=== PATIENT | male | born 1945 | race Caucasian/White ===

== ENCOUNTER 2018-01-14 16:40 | Emergency (ER) | payer OTHER ==
--- NOTE | 2018-01-14 19:09 | ED ---
Fall HPI - General Source: patient, family, RN notes reviewed Mode of arrival: wheelchair Limitations: no limitations <Cornell Burt - Last Filed: 01/14/18 19:50> <Juancarlos Fry - Last Filed: 01/14/18 20:04> - General Chief Complaint: Fall Stated Complaint: Fall Time Seen by Provider: 01/14/18 18:32 - History of Present Illness Initial Comments: This a 72-year-old male presents emergency Department with chief complaint of a fall. Patient states that he went to go grabbed the phone and states he fell striking his head on a wood side table. Patient had no loss conscious. He does admit to mild headache denies any neck pain, upper extremity weakness. states that they called ECP who advised him come emergency from for evaluation. Patient denies any nausea, vomiting, diarrhea constipation. Patient has no laceration. (Cornell Burt) - Related Data Allergies Allergy/AdvReac Type Severity Reaction Status Date / Time prednisone AdvReac Hallucinati Verified 01/14/18 19:54 ons Review of Systems ROS Other: All systems not noted in ROS Statement are negative. <Cornell Burt - Last Filed: 01/14/18 19:50> ROS Other: All systems not noted in ROS Statement are negative. <Juancarlos Fry - Last Filed: 01/14/18 20:04> ROS Statement: Those systems with pertinent positive or pertinent negative responses have been documented in the HPI. Past Medical History Past Medical History: Coronary Artery Disease (CAD), Chest Pain / Angina, Eye Disorder, Hypertension Additional Past Medical History / Comment(s): Glaucoma, History of Any Multi-Drug Resistant Organisms: None Reported Past Surgical History: Appendectomy, Prostate Surgery Past Psychological History: PTSD Smoking Status: Former smoker Past Alcohol Use History: None Reported Past Drug Use History: None Reported <Cornell Burt - Last Filed: 01/14/18 19:50> General Exam Limitations: no limitations General appearance: alert, in no apparent distress Head exam: Present: atraumatic, normocephalic, normal inspection Eye exam: Present: normal appearance, PERRL, EOMI. Absent: scleral icterus, conjunctival injection, periorbital swelling ENT exam: Present: normal exam, normal oropharynx, mucous membranes moist Neck exam: Present: normal inspection, full ROM. Absent: tenderness, meningismus, lymphadenopathy Respiratory exam: Present: normal lung sounds bilaterally. Absent: respiratory distress, wheezes, rales, rhonchi, stridor Cardiovascular Exam: Present: regular rate, normal rhythm, normal heart sounds. Absent: systolic murmur, diastolic murmur, rubs, gallop, clicks Neurological exam: Present: alert, oriented X3, CN II-XII intact, reflexes normal, other (Finger to nose intact bilaterally without over shooting). Absent : motor sensory deficit Skin exam: Present: warm, dry, intact, normal color. Absent: rash <Cornell Burt - Last Filed: 01/14/18 19:50> Course <Cornell Burt - Last Filed: 01/14/18 19:50> <Juancarlos Fry - Last Filed: 01/14/18 20:04> Vital Signs 01/14/18 17:04 Temperature 97.9 F Pulse Rate 55 L Respiratory 20 Rate Blood Pressure 186/90 O2 Sat by Pulse 96 Oximetry - Reevaluation(s) Reevaluation #1: 01/14/18 20:02 PA supervision: I did personally do a [id number] evaluation the patient did discuss findings with him and his family. Patient does complain some sciatic pain from the fall. No new pain however he will receive medication prior to discharge. CAT scan was negative for acute findings. I did review the findings and did discuss the case with the physician electrical assistant. I do agree with the assessment and plan. 01/14/18 20:04 Patient is awake alert oriented. (Juancarlos Fry) Medical Decision Making <Cornell Burt - Last Filed: 01/14/18 19:50> <Juancarlos Fry - Last Filed: 01/14/18 20:04> - Medical Decision Making 72-year-old male presents from for fall. Patient has CT of his C-spine and brain shows no acute abnormality. Patient will be discharged with head injury instructions and return parameters were discussed. (Cornell Burt) Disposition Is patient prescribed a controlled substance at d/c from ED?: No Time of Disposition: 19:51 <Cornell Burt - Last Filed: 01/14/18 19:50> <Juancarlos Fry - Last Filed: 01/14/18 20:04> Clinical Impression: Fall, Head injury Disposition: HOME SELF-CARE Condition: Stable Instructions: Head Injury (ED) Additional Instructions: Please return to the Emergency Department if symptoms worsen or any other concerns. [facility]errals: [facility] [Primary Care Provider] - 1-2 days
--- NOTE | 2018-01-14 19:49 | CT ---
EXAMINATION TYPE: CT brain yusra eisenberg DATE OF EXAM: 01/14/2018 COMPARISON: NONE HISTORY: Fell and hit head. Head and neck pain. CT DLP: 1649.6 mGycm Automated exposure control for dose reduction was used. TECHNIQUE: CT scan of the head and cervical spine are performed without contrast. FINDINGS: There is cerebral cortical atrophy. There is patchy hypodensity in the periventricular wh ite matter. There is no mass effect nor midline shift. There is no sign of intracranial hemorrhage. T he calvarium is intact. Cervical vertebra have normal alignment. There is narrowing of disc spaces from C3 to C7. There is no evidence of a fracture. Skull base is intact. Facet joints are intact. There is posterior endplate s pur formation at C5-6 C6-7. There is uncovertebral spurring on the left side encroaching on the neura l foramina at C5-6 C6-7. IMPRESSION: Cerebral atrophy and chronic small vessel ischemia. No acute intracranial abnormality. Spondylotic changes in the cervical spine. No fracture.
[2018-01-14] MEDS ORDERED: IBUPROFEN 600 MG TAB PO STA (19:53)
[2018-01-14] MEDS ORDERED: KETOROLAC 30 MG/ML 1 ML VIAL IM STA (19:58)
[2018-01-14 20:57] VITALS: BP 183/89; PULSE 59; RESP 18; TEMP 98.4
== END 2018-01-14 20:57 | disposition home or self-care (01) ==
LOC: EC 16:40
DX: S09.90XA Unspecified injury of head, initial encounter (principal); Z87.891 Personal history of nicotine dependence; Z88.8 Allergy status to other drugs, medicaments and biological substances; Z53.8 Procedure and treatment not carried out for other reasons; W18.09XA Striking against other object with subsequent fall, initial encounter; Y92.009 Unspecified place in unspecified non-institutional (private) residence as the place of occurrence of the external cause
CPT/HCPCS: 72125; 70450; 99283; 96372; J1885

== ENCOUNTER → 2018-11-11 | Outpatient (CLI) | payer OTHER ==
[2018-11-11 13:32] LABS: Blood Urea Nitrogen 21 mg/dL (9-20)
--- NOTE | 2018-11-12 09:26 | CT ---
EXAMINATION TYPE: CT urogram wo/w con DATE OF EXAM: 11/11/2018 COMPARISON: None HISTORY: hematuria X 2-3 months, hx of prostate ca CT DLP: 3651.4 mGycm, Automated Exposure Control for Dose Reduction was Utilized. CONTRAST: CT scan of the abdomen and pelvis is performed with oral and with IV Contrast, patient injected with 100 mL of Isovue 300. 3-D images were obtained at a separate workstation of the genitourinary system is limited for review. FINDINGS: LOWER THORAX: There is minimal bibasilar subsegmental dependent atelectasis. Moderate to severe coron kendell artery calcifications are seen. Small hiatal hernia is noted. LIVER/GB: Layering small calculi are seen within the gallbladder on the unenhanced images. PANCREAS: No significant abnormality is seen. SPLEEN: No significant abnormality is seen. ADRENALS: No significant abnormality is seen. KIDNEYS: No nephrolithiasis is identified on the unenhanced images of the kidneys on the right howeve r there is a 2 mm nonobstructing left upper pole and a 4 mm left lower pole nonobstructing calculus. There are multiple subcentimeter bilateral renal cysts and other punctate renal lesions that are too small to accurately characterize. No suspicious renal lesion is seen. No uroepithelial thickening. No hydronephrosis. There is very mild right lateral urinary bladder wall thickening measuring up to 5 mm, likely due to incomplete distention with no focal outpouching seen. BOWEL: No dilated large or small bowel. PROSTATE/SEMINAL VESICLES: Prostate gland appears surgically absent. Inguinal rings are patulous bila terally. LYMPH NODES: No greater than 1cm abdominal or pelvic lymph nodes are appreciated. Nonenlarged 5 mm l eft external chain iliac lymph node is seen on series 6 image 70. Right hemipelvis appears to contain multiple loops of bowel better evaluated on delayed images. OSSEOUS STRUCTURES: Extensive multilevel degenerative changes of the spine. Punctate nonspecific 2 mm sclerotic focus of the right iliac bone likely represents a bone island is also seen in the right il iac bone on image 79 in addition to on image 66. Similar lesion is seen in the left acetabulum on julia ge 90. Endplate sclerosis is most pronounced at L1. Very mild levoscoliosis of the lumbar spine is se en. OTHER: Severe atherosclerosis is seen of the abdominal aorta and its branches. IMPRESSION: 1. Nonobstructing left renal calculi measuring 2 and 4 mm. 2. Multiple renal cysts and some lesions that are too small to accurately characterize (sub-5 mm) how ever no suspicious renal lesion is seen. 3. Very mild right lateral urinary bladder wall thickening but is smoothly marginated and elongated m easuring up to 5 mm likely due to incomplete distention. 4. Punctate sclerotic foci within the pelvis may represent bone islands. Surveillance could be recomm ended in this patient with prostate cancer in correlation with this patient's PSA and comparison with any prior outside images to determine stability. 5. Extensive multilevel degenerative disc disease of the visualized spine.
== END ==
LOC: RADCTMAIN 12:42
PROVIDERS: ATTEND Urology
DX: N20.0 Calculus of kidney (principal); Q61.02 Congenital multiple renal cysts; Z88.1 Allergy status to other antibiotic agents; Z88.8 Allergy status to other drugs, medicaments and biological substances
CPT/HCPCS: 82565; 84520; 74178; 36415; 74400; Q9967

== ENCOUNTER 2021-03-13 15:44 | Emergency (ER) | payer OTHER, MEDICARE ==
[2021-03-13] MEDS ORDERED: PROPARACAINE 0.5% OPHTH DROPS 15 ML BTL LEFT EYE STA (16:34)
--- NOTE | 2021-03-13 16:41 | ED ---
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 Patient was evaluated and [place] yesterday with an MRI of the brain and orbits. brought him to the ER today because she noted that his right eye appeared more reddened than usual and he had a bruise on his right upper extremity which she was uncertain how he got and if it was of any significance. Patient states that his right eye is somewhat sore but denies other complaints. - Related Data Home Medications Medication Instructions Recorded Confirmed Ascorbic Acid [Vitamin C] 500 mg PO DAILY@1200 01/14/18 03/13/21 Cholecalciferol (Vitamin D3) 2,000 unit PO BID 01/14/18 03/13/21 [Vitamin D3] Dorzolamide-Timol 2.23%/0.68% 1 drop BOTH EYES BID 01/14/18 03/13/21 [dorzolamide-Timolol 2%/0.5%] Latanoprost [Xalatan 0.005%] 1 drop LEFT EYE HS 01/14/18 03/13/21 lisinopriL 40 mg PO DAILY 01/14/18 03/13/21 Docusate [Colace] 100 mg PO BID PRN 03/13/21 03/13/21 Mirtazapine [Remeron] 7.5 mg PO HS 03/13/21 03/13/21 Nystatin 100,000 Unit/gm Powd 1 applic TOPICAL DAILY 03/13/21 03/13/21 [Mycostatin Powder] Nystatin 100,000Unit/gm Cream 1 applic TOPICAL DAILY 03/13/21 03/13/21 [Mycostatin Cream] Solifenacin Succinate [Vesicare] 10 mg PO HS 03/13/21 03/13/21 amLODIPine [Norvasc] 10 mg PO HS 03/13/21 03/13/21 metroNIDAZOLE [metroNIDAZOLE 0.75% 1 applic TOPICAL BID 03/13/21 03/13/21 Gel] Allergies Allergy/AdvReac Type Severity Reaction Status Date / Time pilocarpine Allergy Unknown Verified 03/13/21 16:54 prednisone AdvReac Hallucinati Verified 03/13/21 16:54 ons Review of Systems ROS Statement: Those systems with pertinent positive or pertinent negative responses have been documented in the HPI. ROS Other: All systems not noted in ROS Statement are negative. Past Medical History Past Medical History: Coronary Artery Disease (CAD), Chest Pain / Angina, Eye Disorder, Hypertension Additional Past Medical History / Comment(s): Glaucoma, History of Any Multi-Drug Resistant Organisms: None Reported Past Surgical History: Appendectomy, Prostate Surgery Past Psychological History: PTSD Past Alcohol Use History: None Reported Past Drug Use History: None Reported General Exam - General Exam Comments Initial Comments: Physical Exam GENERAL: Elderly, chronically ill HENT: Normocephalic, Atraumatic. EYES: Conjunctival injection bilaterally Pupils equal, reactive Pressure right eye - 21, 21, 20 PULMONARY: Unlabored respirations. CARDIOVASCULAR: RRR ABDOMEN: Non-distended SKIN: Bruise RUE, no swelling, no tenderness : Deferred NEUROLOGIC: Alert and oriented MUSCULOSKELETAL: Moving all extremities with no apparent injury PSYCHIATRIC: No SI/HI Limitations: no limitations Course Vital Signs 03/13/21 03/13/21 03/13/21 15:47 17:10 19:06 Temperature 98.2 F 98.9 F Pulse Rate 71 66 71 Respiratory 19 18 17 Rate Blood Pressure 149/83 147/75 141/77 O2 Sat by Pulse 96 98 96 Oximetry EKG Findings - EKG Comments: EKG Findings:: EKG was obtained due to complaint generalized weakness, EKG obtained at 15 [id number] rhythm is normal sinus normal axis normal intervals no acute ST elevations or depressions no evidence of ischemia or infarction Medical Decision Making - Medical Decision Making The patient was seen and evaluated, history is obtained from the at bedside, 75-year-old gentleman multiple medical problems, chronic eye problems vision loss he's following with ophthalmology and neurology had MRIs yesterday. reported that today she felt like his right eye looked red, in addition she noted a bruise on his right upper extremity, uncertain what the cause was. Patient had no acute complaints. Labs were obtained due to the bruising, platelets are normal CBC and CMP are relatively unremarkable. There is no signs of pinkeye there is no crusting. Patient has no pain. Pupils are equal round and reactive. Pressure in the right eye is on the upper end of normal but still within normal limits. This patient is elderly he is quite weak she does require assistance in all activities of daily living. I asked the if she felt comfortable taking him home or if she felt that he needed to be admitted to the hospital for possible placement in a rehab facility. After discussion with her son patient is decided that they would like to continue to use the patient home. Son will be at bedside with a wheelchair to assist in transporting patient home. will follow with primary care provider regarding MRI and with ophthalmology for changes in the patient's eyes. - Lab Data Result diagrams: 03/13/21 17:07 03/13/21 17:07 Lab Results 03/13/21 03/13/21 Range/Units 17:07 17:07 WBC 7.1 (3.8-10.6) k/uL RBC 4.67 (4.30-5.90) m/uL Hgb 15.4 (13.0-17.5) gm/dL Hct 45.8 (39.0-53.0) % MCV 98.3 (80.0-100.0) fL MCH 33.1 (25.0-35.0) pg MCHC 33.7 (31.0-37.0) g/dL RDW 13.8 (11.5-15.5) % Plt Count 204 (150-450) k/uL MPV 8.4 Neutrophils % 59 % Lymphocytes % 27 % Monocytes % 6 % Eosinophils % 5 % Basophils % 1 % Neutrophils # 4.2 (1.3-7.7) k/uL Lymphocytes # 1.9 (1.0-4.8) k/uL Monocytes # 0.4 (0-1.0) k/uL Eosinophils # 0.4 (0-0.7) k/uL Basophils # 0.1 (0-0.2) k/uL Sodium 138 (137-145) mmol/L Potassium 4.3 (3.5-5.1) mmol/L Chloride 104 (98-107) mmol/L Carbon Dioxide 27 (22-30) mmol/L Anion Gap 7 mmol/L BUN 26 H (9-20) mg/dL Creatinine 0.89 (0.66-1.25) mg/dL Est GFR (CKD-EPI)AfAm >90 (>60 ml/min/1.73 sqM) Est GFR (CKD-EPI)NonAf 84 (>60 ml/min/1.73 sqM) Glucose 103 H (74-99) mg/dL Calcium 9.1 (8.4-10.2) mg/dL Total Bilirubin 0.6 (0.2-1.3) mg/dL AST 24 (17-59) U/L ALT 13 (4-49) U/L Alkaline Phosphatase 53 (38-126) U/L Total Protein 6.4 (6.3-8.2) g/dL Albumin 3.7 (3.5-5.0) g/dL Disposition Clinical Impression: Contusion, Eye pain, Vision loss Disposition: HOME SELF-CARE Condition: Stable Additional Instructions: Follow up with your opthalmologist and PCP Is patient prescribed a controlled substance at d/c from ED?: No Referrals: [facility],Clinic [Primary Care Provider] - 1-2 days
[2021-03-13 17:15] LABS: Basophils # (A) 0.1 k/uL (0-0.2); Basophils % (A) 1 %; Eosinophils # (A) 0.4 k/uL (0-0.7); Eosinophils % (A) 5 %; HCT 45.8 % (39.0-53.0); HGB 15.4 gm/dL (13.0-17.5); Lymphocytes # (A) 1.9 k/uL (1.0-4.8); Lymphocytes % (A) 27 %; MCH 33.1 pg (25.0-35.0); MCHC 33.7 g/dL (31.0-37.0); MCV 98.3 fL (80.0-100.0); Mean Platelet Volume 8.4; Monocytes # (A) 0.4 k/uL (0-1.0); Monocytes % (A) 6 %; Neutrophils # (A) 4.2 k/uL (1.3-7.7); Neutrophils % (A) 59 %; Platelet Count 204 k/uL (150-450); RBC 4.67 m/uL (4.30-5.90); RDW 13.8 % (11.5-15.5); WBC 7.1 k/uL (3.8-10.6)
[2021-03-13 17:25] LABS: ALT 13 U/L (4-49); AST 24 U/L (17-59); African American GFR (CKD) >90 (>60 ml/min/1.73 sqM); Albumin 3.7 g/dL (3.5-5.0); Alkaline Phosphatase 53 U/L (38-126); Anion Gap 7 mmol/L; Blood Urea Nitrogen 26 mg/dL (9-20); Calcium 9.1 mg/dL (8.4-10.2); Carbon Dioxide 27 mmol/L (22-30); Chloride 104 mmol/L (98-107); Glucose 103 mg/dL (74-99); Non-African American GFR(CKD) 84 (>60 ml/min/1.73 sqM); Potassium 4.3 mmol/L (3.5-5.1); Sodium 138 mmol/L (137-145); Total Bilirubin 0.6 mg/dL (0.2-1.3); Total Protein 6.4 g/dL (6.3-8.2)
[2021-03-13 19:07] VITALS: BP 141/77; PULSE 71; RESP 17; TEMP 98.9
== END 2021-03-13 19:07 | disposition home or self-care (01) ==
LOC: EC 15:44
DX: H57.11 Ocular pain, right eye (principal); S40.021A Contusion of right upper arm, initial encounter; H54.7 Unspecified visual loss; I25.10 Atherosclerotic heart disease of native coronary artery without angina pectoris; I10 Essential (primary) hypertension; H40.9 Unspecified glaucoma; F43.12 Post-traumatic stress disorder, chronic; Z90.49 Acquired absence of other specified parts of digestive tract; Z88.8 Allergy status to other drugs, medicaments and biological substances; Z79.899 Other long term (current) drug therapy; X58.XXXA Exposure to other specified factors, initial encounter
CPT/HCPCS: 36415; 80053; 85025; 93005; 99285

== ENCOUNTER 2021-07-31 17:07 | Emergency (ER) | payer MEDICARE, OTHER ==
[2021-07-31 18:09] LABS: Basophils # (A) 0.1 k/uL (0-0.2); Basophils % (A) 1 %; Eosinophils # (A) 0.5 k/uL (0-0.7); Eosinophils % (A) 5 %; HCT 44.4 % (39.0-53.0); Lymphocytes # (A) 2.2 k/uL (1.0-4.8); Lymphocytes % (A) 23 %; MCH 32.9 pg (25.0-35.0); MCHC 33.9 g/dL (31.0-37.0); MCV 96.9 fL (80.0-100.0); Mean Platelet Volume 8.1; Monocytes # (A) 0.5 k/uL (0-1.0); Monocytes % (A) 5 %; Neutrophils # (A) 6.5 k/uL (1.3-7.7); Neutrophils % (A) 66 %; Platelet Count 227 k/uL (150-450); RBC 4.58 m/uL (4.30-5.90); RDW 12.8 % (11.5-15.5); WBC 9.9 k/uL (3.8-10.6)
[2021-07-31 18:15] LABS: ALT 14 U/L (4-49); AST 40 U/L (17-59); African American GFR (CKD) >90 (>60 ml/min/1.73 sqM); Albumin 3.8 g/dL (3.5-5.0); Alkaline Phosphatase 42 U/L (38-126); Anion Gap 5 mmol/L; Blood Urea Nitrogen 25 mg/dL (9-20); Calcium 8.8 mg/dL (8.4-10.2); Carbon Dioxide 23 mmol/L (22-30); Chloride 109 mmol/L (98-107); Glucose 104 mg/dL (74-99); Non-African American GFR(CKD) 85 (>60 ml/min/1.73 sqM); Sodium 137 mmol/L (137-145); Total Bilirubin 1.2 mg/dL (0.2-1.3); Total Protein 6.9 g/dL (6.3-8.2)
--- NOTE | 2021-07-31 18:16 | ED ---
General Adult HPI - General Chief complaint: Eye Problems Stated complaint: Rt Eye Pain Time Seen by Provider: 07/31/21 17:21 Source: patient, EMS, RN notes reviewed, old records reviewed Mode of arrival: EMS Limitations: no limitations - History of Present Illness Initial comments: 76-year-old male presenting for evaluation of right eye pain. Patient is unable to contribute at all to the history. His is at bedside states that he's been dealing with a retinal issue at [facility] for the past several years. She is uncertain of the exact diagnosis. Patient had developed some eye pain which the believes was predominantly today. He is legally blind in both eyes. He is essentially nonverbal. 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 They live at an assisted living facility. There's been no measured fever. No injury reported. - Related Data Home Medications Medication Instructions Recorded Confirmed Ascorbic Acid [Vitamin C] 500 mg PO DAILY@1200 01/14/18 03/13/21 Cholecalciferol (Vitamin D3) 2,000 unit PO BID 01/14/18 03/13/21 [Vitamin D3] Dorzolamide-Timol 2.23%/0.68% 1 drop BOTH EYES BID 01/14/18 03/13/21 [dorzolamide-Timolol 2%/0.5%] Latanoprost [Xalatan 0.005%] 1 drop LEFT EYE HS 01/14/18 03/13/21 lisinopriL 40 mg PO DAILY 01/14/18 03/13/21 Docusate [Colace] 100 mg PO BID PRN 03/13/21 03/13/21 Mirtazapine [Remeron] 7.5 mg PO HS 03/13/21 03/13/21 Nystatin 100,000 Unit/gm Powd 1 applic TOPICAL DAILY 03/13/21 03/13/21 [Mycostatin Powder] Nystatin 100,000Unit/gm Cream 1 applic TOPICAL DAILY 03/13/21 03/13/21 [Mycostatin Cream] Solifenacin Succinate [Vesicare] 10 mg PO HS 03/13/21 03/13/21 amLODIPine [Norvasc] 10 mg PO HS 03/13/21 03/13/21 metroNIDAZOLE [metroNIDAZOLE 0.75% 1 applic TOPICAL BID 03/13/21 03/13/21 Gel] Previous Rx's Medication Instructions Recorded Erythromycin Ophth Oint [Romycin 1 applic RIGHT EYE QID #3.5 gm 07/31/21 Ophth Oint] Allergies Allergy/AdvReac Type Severity Reaction Status Date / Time pilocarpine Allergy Unknown Verified 07/31/21 17:24 prednisone AdvReac Hallucinati Verified 07/31/21 17:24 ons Review of Systems ROS Statement: Those systems with pertinent positive or pertinent negative responses have been documented in the HPI. ROS Other: All systems not noted in ROS Statement are negative. Past Medical History Past Medical History: Coronary Artery Disease (CAD), Chest Pain / Angina, Eye Disorder, Hypertension Additional Past Medical History / Comment(s): Glaucoma, History of Any Multi-Drug Resistant Organisms: None Reported Past Surgical History: Appendectomy, Prostate Surgery Past Psychological History: PTSD Smoking Status: Never smoker Past Alcohol Use History: None Reported Past Drug Use History: None Reported General Exam Limitations: no limitations General appearance: alert, in no apparent distress Head exam: Present: atraumatic, normocephalic Eye exam: Present: other (Both corneas are clear. There is tenderness to palpation of the right eye. There is some clear drainage as well as scleral injection. The pupil is sluggish but reactive. Patient does have sensitivity to light predominantly on the right. There is no periorbital swelling, ) Neck exam: Present: normal inspection. Absent: tenderness, meningismus Respiratory exam: Present: normal lung sounds bilaterally. Absent: respiratory distress Cardiovascular Exam: Present: regular rate, normal rhythm GI/Abdominal exam: Present: soft. Absent: distended, tenderness, guarding Extremities exam: Present: normal inspection, normal capillary refill. Absent: pedal edema Neurological exam: Present: alert, oriented X3, CN II-XII intact. Absent: motor sensory deficit Psychiatric exam: Present: normal affect, normal mood Skin exam: Present: warm, dry, intact. Absent: cyanosis, diaphoretic Course Vital Signs 07/31/21 07/31/21 17:20 19:11 Temperature 98.5 F Pulse Rate 59 L 55 L Respiratory 18 18 Rate Blood Pressure 162/82 163/91 O2 Sat by Pulse 98 96 Oximetry - Reevaluation(s) Reevaluation #1: 07/31/21 18:15 I cannot obtain intraocular pressure because the patient will not tolerate. Medical Decision Making - Medical Decision Making 70 sexual man who will present with right eye pain. Patient nonverbal. History is obtained from the who indicates that this has likely been going on for some time. Patient follows closely with ophthalmology at the [facility]. Patient does have topical antibiotics. He is on drops for glaucoma and has a retinal disease. He is noncompliant with the exam. There was concern for pathology within the orbit. CT was performed which was negative, shows implant likely related to glaucoma drainage. We did discuss following with ophthalmology in this community however the indicates that she would prefer to stick with the stator tester in [place]. She will contact them tomorrow for evaluation. - Lab Data Result diagrams: 07/31/21 18:00 07/31/21 18:00 Lab Results 07/31/21 07/31/21 Range/Units 18:00 18:00 WBC 9.9 (3.8-10.6) k/uL RBC 4.58 (4.30-5.90) m/uL Hgb 15.0 (13.0-17.5) gm/dL Hct 44.4 (39.0-53.0) % MCV 96.9 (80.0-100.0) fL MCH 32.9 (25.0-35.0) pg MCHC 33.9 (31.0-37.0) g/dL RDW 12.8 (11.5-15.5) % Plt Count 227 (150-450) k/uL MPV 8.1 Neutrophils % 66 % Lymphocytes % 23 % Monocytes % 5 % Eosinophils % 5 % Basophils % 1 % Neutrophils # 6.5 (1.3-7.7) k/uL Lymphocytes # 2.2 (1.0-4.8) k/uL Monocytes # 0.5 (0-1.0) k/uL Eosinophils # 0.5 (0-0.7) k/uL Basophils # 0.1 (0-0.2) k/uL Sodium 137 (137-145) mmol/L Potassium 5.3 H (3.5-5.1) mmol/L Chloride 109 H (98-107) mmol/L Carbon Dioxide 23 (22-30) mmol/L Anion Gap 5 mmol/L BUN 25 H (9-20) mg/dL Creatinine 0.85 (0.66-1.25) mg/dL Est GFR (CKD-EPI)AfAm >90 (>60 ml/min/1.73 sqM) Est GFR (CKD-EPI)NonAf 85 (>60 ml/min/1.73 sqM) Glucose 104 H (74-99) mg/dL Calcium 8.8 (8.4-10.2) mg/dL Total Bilirubin 1.2 (0.2-1.3) mg/dL AST 40 (17-59) U/L ALT 14 (4-49) U/L Alkaline Phosphatase 42 (38-126) U/L Total Protein 6.9 (6.3-8.2) g/dL Albumin 3.8 (3.5-5.0) g/dL Disposition Clinical Impression: Conjunctivitis, Eye pain Disposition: HOME SELF-CARE Condition: Fair Instructions (If sedation given, give patient instructions): Eye Pain (ED) Additional Instructions: He is calling [facility] in the morning for follow-up. Prescriptions: Erythromycin Ophth Oint [Romycin Ophth Oint] 1 applic RIGHT EYE QID #3.5 gm Is patient prescribed a controlled substance at d/c from ED?: No Referrals: Kimberly Dover, PAC [Primary Care Provider] - 1-2 days Decision to Admit Reason: Admit from EC Decision Date: 07/31/21 Decision Time: 20:01
[2021-07-31 18:19] LABS: Potassium 5.3 mmol/L (3.5-5.1)
--- NOTE | 2021-07-31 19:19 | CT ---
EXAM: CT brain wo con CLINICAL HISTORY: Headache and right eye pain. COMPARISON: 01/06/2018 TECHNIQUE: Contiguous axial noncontrast images of the brain were obtained. Coronal and sagittal refor mats were generated and reviewed. Automated dose control was used for this exam. FINDINGS: There is no evidence for intracranial hemorrhage, mass effect or midline shift. There is moderate whi te matter disease and mild parenchymal volume loss. Ventricular size and configuration is within normal limits for degree of parenchymal volume. The paranasal sinuses are clear. The mastoid air cells are clear. No evidence for calvarial fracture. Stable right ocular implant seen. IMPRESSION: No acute intracranial abnormality.
--- NOTE | 2021-07-31 19:23 | CT ---
Exam: CT ORBITS WITHOUT CONTRAST Clinical Indication: Right eye pain and proptosis. Comparison: 01/06/2018. Technique: A CT of the orbits was performed utilizing axial acquisition without the administration o f intravenous contrast. Sagittal and coronal reformations were obtained. Automated dose reduction rikki hniques was performed. Findings: There is no acute fracture or dislocation. There is stable right ocular implant. Otherwise the bilateral globes are intact. The paranasal sinuse s are adequately aerated. No significant soft tissue abnormality. Impression: No acute abnormality. Stable right ocular implant.
[2021-07-31 22:05] VITALS: BP 145/89; PULSE 78; RESP 16; TEMP 98.6
== END 2021-07-31 21:45 | disposition home or self-care (01) ==
LOC: EC 17:07
DX: H10.89 Other conjunctivitis (principal); I25.10 Atherosclerotic heart disease of native coronary artery without angina pectoris; I10 Essential (primary) hypertension; Z90.49 Acquired absence of other specified parts of digestive tract; F43.12 Post-traumatic stress disorder, chronic
CPT/HCPCS: 99284 ×2; 36415; 80053; 85025; 70450; 70481; Q9967